=== PATIENT | male | born 1945 | race Caucasian/White ===

== ENCOUNTER 2016-05-22 20:03 | Emergency (ER) | payer MEDICARE ==
[2016-05-22 20:29] VITALS: BP 131/66
--- NOTE | 2016-05-22 20:44 | UC ---
Abdominal Pain Male HPI - HPI Summary HPI Summary: The patient comes in today for: 1. Abdominal pain: Onset: Today (4-5 hours ago). Palliative/provocative: Duralax pill was taken at about 4 hours ago. The pain went away and came back about 1-2 hours ago. At that time, the pain was 8/10 Quality: Cramping--"Like something is blocking down there." Region: Periumbilical. Severity: 2/10 at this time. Time: Comes and goes, but constant over the last few hours, though lessened. Associated symptoms: Right lower back pain: He has had this on and off for 4 months. Fevers: No temperature taken. Previous disease: He had a similar cause of pain about a month ago--"but it went away." But, he states that he had problems with constipation then. Last BM: 9 AM this morning. * - History of Current Complaint Chief Complaint: UC Stated Complaint: ABDOMINAL PAIN Time Seen by Provider: 05/22/16 20:21 Hx Obtained From: Patient, Family/[employer] - Allergies/Home Medications Allergies/Adverse Reactions: Allergies Allergy/AdvReac Type Severity Reaction Status Date / Time No Known Allergies Allergy Verified 05/06/13 10:14 PMH/Surg Hx/FS Hx/Imm Hx Previously Healthy: No - [place], ED, Subdural hematoma 2013 Endocrine History Of: Reports: Diabetes, Dyslipidemia Denies: Thyroid Disease, Hyperthyroidism, Hypothyroidism Cardiovascular History Of: Reports: Hypertension Denies: Cardiac Disorders, Pacemaker/ICD, Myocardial Infarction, Congestive Heart Failure, Atrial Fibrillation, Deep Vein Thrombosis, Bleeding Disorders Respiratory History Of: Denies: COPD, Asthma, Bronchitis, Pneumonia, Pulmonary Embolism GI/ History Of: Denies: Gastroesophageal Reflux, Ulcer, Gastrointestinal Bleed, Gall Bladder Disease, Kidney Stones, Diverticulitis, Renal Disease, Urosepsis Neurological History Of: Denies: TIA, CVA, Dementia, Seizures, Migraine Psychological History Of: Denies: Anxiety, Depression, Bipolar Disorder, Schizophrenia, Post Traumatic Stress Disorder Cancer History Of: Reports: Prostate Cancer - 2004 Denies: Lung Cancer, Colorectal Cancer, Breast Cancer, Cervical Cancer Other History Of: Negative For: HIV, Hepatitis B, Hepatitis C, Anticoagulant Therapy - Surgical History Surgical History: Yes Surgery Procedure, Year, and Place: 08/25/13-Subdural Hematoma Craniotomy, prostate - Family History Known Family History: Positive: Cardiac Disease, Diabetes - Social History Occupation: Retired Lives: With Family Alcohol Use: Rare Substance Use Type: None Smoking Status (MU): Former Smoker - Immunization History Most Recent Influenza Vaccination: 2012 Most Recent Tetanus Shot: up to date Most Recent Pneumonia Vaccination: up to date Review of Systems Constitutional: Negative Skin: Negative Eyes: Negative ENT: Negative Respiratory: Negative Cardiovascular: Negative Gastrointestinal: Abdominal Pain Genitourinary: Negative All Other Systems Reviewed And Are Negative: Yes Physical Exam Triage Information Reviewed: Yes Appearance: Well-Appearing, No Pain Distress, Well-Nourished Vital Signs: Initial Vital Signs Temp 98.1 F 05/22/16 20:24 Pulse 92 05/22/16 20:24 Resp 18 05/22/16 20:24 BP 131/66 05/22/16 20:24 Pulse Ox 97 05/22/16 20:24 Vital Signs Reviewed: Yes Eyes: Positive: Conjunctiva Clear. Negative: Discharge ENT: Positive: Hearing grossly normal. Negative: Pharyngeal erythema, Nasal congestion, Nasal drainage, TM bulging, TM dull, TM red, Tonsillar swelling, Tonsillar exudate Dental: Negative: Gross Decay/Caries @, Dental Fracture @ Neck: Positive: Supple, Nontender, No Lymphadenopathy. Negative: Nuchal Rigidity Respiratory: Positive: Chest non-tender, Lungs clear, No respiratory distress, No accessory muscle use. Negative: Crackles, Wheezing Cardiovascular: Positive: RRR, No Murmur Abdomen Description: Positive: No Organomegaly, Soft. Negative: Nontender - He has consistent tenderness of the left lower quadrant. There is no rebound or percussion tenderness, but there is increased abdominal adipose tissue interferring with the exam., Distended, Guarding, Peritoneal Signs Musculoskeletal: Positive: Strength Intact, ROM Intact Neurological: Positive: Alert, Muscle Tone Normal Psychological: Positive: Age Appropriate Behavior, Consolable Skin: Negative: rashes, breakdown Abd Pain Male Course/Dx - Differential Dx/Clinical Impression Differential Diagnosis/HQI/PQRI: Appendicitis, Diverticulitis, Ischemic Bowel Provider Diagnoses: Left lower quadrant abdominal pain. Periumbilical abdominal pain - Physician Notification/Consults Discussed Patient Care With: Dr. Andre Claire. Time Discussed With Above Provider: 21:00 Discharge - Discharge Plan Condition: Stable Disposition: AGAINST MEDICAL ADVICE Additional Instructions: Please go directly to the [facility] ER.
== END 2016-05-22 21:28 | disposition short-term general hospital (02) ==
LOC: UCEAST 20:03
DX: R10.32 Left lower quadrant pain (principal); R10.33 Periumbilical pain; Z87.891 Personal history of nicotine dependence
CPT/HCPCS: 99212; G0463

== ENCOUNTER 2016-05-22 21:38 | Observation (INO) | payer MEDICARE ==
[2016-05-22] MEDS ORDERED: NS 0.9% 1000 ML* 1,000 ML IV ONE (22:16)
[2016-05-22 23:02] LABS: Hematocrit 41 % (42-52); Mean Corpuscular HGB Conc 34 g/dl (31-36); Mean Corpuscular Hemoglobin 28 pg (27-31); Mean Corpuscular Volume 83 fL (80-94); Mean Platelet Volume 9 um3 (7.4-10.4); Red Blood Count 4.94 10^6/ul (4.0-5.4); Red Cell Distribution Width 14 % (10.5-15); White Blood Count 11.9 10^3/ul (3.5-10.8)
[2016-05-22 23:20] LABS: BUN/Creatinine Ratio 18.2 (8-20); Calcium 8.7 mg/dL (8.6-10.3); EGFR African American 109.8 (>60); EGFR Non-African American 85.4 (>60); Globulin 2.3 g/dL (2-4); Total Bilirubin 2.3 mg/dL (0.2-1.0); Total Protein 6.3 g/dL (6.4-8.9)
[2016-05-22 23:23] LABS: Potassium 3.7 mmol/L (3.5-5.0)
[2016-05-23] MEDS ORDERED: Iodixanol* (CONTRAST) 320 MG/ML 100 ML SDV IV ONE (00:09)
[2016-05-23 00:39] LABS: Urine Bacteria 1+ (Absent); Urine Bilirubin Negative (Negative); Urine Glucose Negative (Negative); Urine Nitrite Negative (Negative)
[2016-05-23] MEDS ORDERED: NS 0.9% 1000 ML* 1,000 ML IV ONE (00:44)
--- NOTE | 2016-05-23 00:46 | ED ---
Stacy Garcia Claudia, scribed for Nehemiah Guerrero MD on 05/22/16 at 2207 . Abdominal Pain/Male - HPI Summary HPI Summary: 71 year old male presents to the ED from [facility] with LLQ pain. Pt notes sudden onset of pain 1600 today. Pt notes the pain has been a constant 7/10. He notes having 1 BM with assistance of miralax but it did not alleviate his Sx. He denies any N/V/D and fever/ chills. Pt denies having any diverticulosis/ diverticulitis. - History of Current Complaint Chief Complaint: ED Stated Complaint: UCEAST XFER Time Seen by Provider: 05/22/16 21:56 Hx Obtained From: Patient Onset/Duration: Sudden Onset, Lasting Hours - sudden onset 1600 today, Still Present Timing: Constant Pain Intensity: 7 Pain Scale Used: 0-10 Numeric Location: Discrete At: LLQ Radiates: No Character: Cramping Associated Signs And Symptoms: Negative: Fever, Nausea, Vomiting, Diarrhea - Allergies/Home Medications Allergies/Adverse Reactions: Allergies Allergy/AdvReac Type Severity Reaction Status Date / Time No Known Allergies Allergy Verified 05/06/13 10:14 PMH/Surg Hx/FS Hx/Imm Hx Previously Healthy: Yes Endocrine/Hematology History: Reports: Hx Diabetes, Other Endocrine/ Hematological Disorders - History of Rosacea Denies: Hx Anticoagulant Therapy, Hx Thyroid Disease Cardiovascular History: Reports: Hx Hypertension Denies: Hx Congestive Heart Failure, Hx Deep Vein Thrombosis, Hx Myocardial Infarction, Hx Pacemaker/ICD Respiratory History: Reports: Hx Sleep Apnea - current CPAP user, compliant Denies: Hx Asthma, Hx Chronic Obstructive Pulmonary Disease (COPD), Hx Lung Cancer, Hx Pneumonia, Hx Pulmonary Embolism GI History: Denies: Hx Gall Bladder Disease, Hx Gastrointestinal Bleed, Hx Ulcer, Hx Urosepsis History: Reports: Other Problems/Disorders - Prostate Cancer Denies: Hx Kidney Stones, Hx Renal Disease Sensory History: Reports: Hx Contacts or Glasses Denies: Hx Hearing Aid Opthamlomology History: Reports: Hx Contacts or Glasses Neurological History: Denies: Hx Dementia, Hx Migraine, Hx Seizures, Hx Transient Ischemic Attacks (TIA) Psychiatric History: Denies: Hx Anxiety, Hx Depression, Hx Panic Disorder, Hx Schizophrenia, Hx Bipolar Disorder - Cancer History Cancer Type, Location and Year: Prostate Cancer dx 2004 with radical prostatectomy. no radiation or chemo Hx Chemotherapy: No Hx Radiation Therapy: No - Surgical History Surgery Procedure, Year, and Place: 08/25/13-Subdural Hematoma Craniotomy, prostate Hx Anesthesia Reactions: No Infectious Disease History: No Infectious Disease History: Denies: Hx Hepatitis, Hx Human Immunodeficiency Virus (HIV), Traveled Outside the [place] in Last 30 Days - Family History Known Family History: Positive: Cardiac Disease, Diabetes - Social History Lives: With Family Alcohol Use: Rare Substance Use Type: Reports: None Smoking Status (MU): Former Smoker Review of Systems Negative: Fever, Chills Eyes: Negative ENT: Negative Cardiovascular: Negative Respiratory: Negative Positive: Abdominal Pain - LLQ pain . Negative: Vomiting, Diarrhea, Nausea Genitourinary: Negative Musculoskeletal: Negative Skin: Negative Neurological: Negative Psychological: Normal All Other Systems Reviewed And Are Negative: Yes Physical Exam Triage Information Reviewed: Yes Vital Signs On Initial Exam: Initial Vitals Temp Pulse Resp BP Pulse Ox 98.4 F 102 16 145/71 100 05/22/16 21:43 05/22/16 21:43 05/22/16 21:43 05/22/16 21:43 05/22/16 21:43 Vital Signs Reviewed: Yes Appearance: Positive: Well-Appearing, No Pain Distress, Well-Nourished. Negative: Pain Distress Skin: Positive: Warm, Skin Color Reflects Adequate Perfusion, Dry Eyes: Positive: Normal Neck: Positive: Supple, Nontender Respiratory/Lung Sounds: Positive: Breath Sounds Present Cardiovascular: Positive: Normal, RRR, Pulses are Symmetrical in both Upper and Lower Extremities Abdomen Description: Positive: Soft, Other: - LLQ pain Male Genital Exam: Positive: normal genitalia, no hernia. Negative: epididymal tenderness, erythema, hernia mass, scrotum tenderness (R), scrotum tenderness (L ), testicular tenderness (R), testicular tenderness (L), urethral discharge Musculoskeletal: Positive: Normal, Strength/ROM Intact, Other - reproducible right paralumbar tenderness fro sacrum to trunk Neurological: Positive: Normal, Sensory/Motor Intact Psychiatric: Positive: Affect/Mood Appropriate Diagnostics - Vital Signs Vital Signs Temp Pulse Resp BP Pulse Ox 05/22/16 21:43 98.4 F 102 16 145/71 100 - Laboratory Lab Results: Lab Results 05/22/16 05/22/16 Range/Units 22:25 22:25 WBC 11.9 H (3.5-10.8) 10^3/ul RBC 4.94 (4.0-5.4) 10^6/ul Hgb 14.0 (14.0-18.0) g/dl Hct 41 L (42-52) % MCV 83 (80-94) fL MCH 28 (27-31) pg MCHC 34 (31-36) g/dl RDW 14 (10.5-15) % Plt Count 165 (150-450) 10^3/ul MPV 9 (7.4-10.4) um3 Neut % (Auto) 87.8 H (38-83) % Lymph % (Auto) 4.4 L (25-47) % [place] % (Auto) 7.3 (1-9) % Eos % (Auto) 0.2 (0-6) % Baso % (Auto) 0.3 (0-2) % Absolute Neuts (auto) 10.5 H (1.5-7.7) 10^3/ul Absolute Lymphs (auto) 0.5 L (1.0-4.8) 10^3/ul Absolute Monos (auto) 0.9 H (0-0.8) 10^3/ul Absolute Eos (auto) 0 (0-0.6) 10^3/ul Absolute Basos (auto) 0 (0-0.2) 10^3/ul Absolute Nucleated RBC 0 10^3/ul Nucleated RBC % 0 Sodium 132 L (133-145) mmol/L Potassium 3.7 (3.5-5.0) mmol/L Chloride 101 (101-111) mmol/L Carbon Dioxide 21 L (22-32) mmol/L Anion Gap 10 (2-11) mmol/L BUN 16 (6-24) mg/dL Creatinine 0.88 (0.67-1.17) mg/dL Est GFR ( Amer) 109.8 (>60) Est GFR (Non-Af Amer) 85.4 (>60) BUN/Creatinine Ratio 18.2 (8-20) Glucose 202 H (70-100) mg/dL Calcium 8.7 (8.6-10.3) mg/dL Total Bilirubin 2.30 H (0.2-1.0) mg/dL AST 462 H (13-39) U/L ALT 292 H (7-52) U/L Alkaline Phosphatase 86 (34-104) U/L Total Protein 6.3 L (6.4-8.9) g/dL Albumin 4.0 (3.2-5.2) g/dL Globulin 2.3 (2-4) g/dL Albumin/Globulin Ratio 1.7 (1-3) Lipase Pending Result Diagrams: 05/22/16 22:25 05/22/16 22:25 Lab Statement: Any lab studies that have been ordered have been reviewed, and results considered in the medical decision making process. Abdominal Pain Fem Course/Dx - Course Course Of Treatment: I discussed the case with the patient and . They agreed to admission since they do no have adequate GI FU. - Diagnoses Differential Diagnosis/HQI/PQRI: Diverticulitis, Pancreatitis, Renal Colic, Urinary Tract Infection, Other - Unclear cause for the LLQ/pelvic pain. No testicular pain or penile swelling. Low concern for torsion. No flank pain. Had an elevated T bili and mild transaminitis, but on further history taking he had several alcoholic cocktails last night during the [employer] Bowl and no longer regularly drinks alcohol. Provider Diagnoses: Acute pancreatitis - Provider Notifications Discussed Care Of Patient With: Dr. Alanis to admit for further evaluation and GI FU. Time Discussed With Above Provider: 00:44 - Critical Care Time Critical Care Time: 30-74 min Discharge - Discharge Plan Condition: Stable Disposition: ADMITTED TO [facility] Referrals: Alejandro Manning MD [Primary Care Provider] - If Needed Luis Allen MD [Medical Doctor] - If Needed The documentation as recorded by the Stacy cotter Claudia accurately reflects the service I personally performed and the decisions made by me, Nehemiah Geurrero MD.
[2016-05-23] MEDS ORDERED: Al Hydrox/Mg Hydrox/Simet LIQ* 30 ML UDC PO PRN (01:11)
[2016-05-23] MEDS ORDERED: Senna TAB PO PRN (01:11)
[2016-05-23] MEDS ORDERED: Ondansetron INJ* 2 MG/ML VIAL IV PRN (01:11)
[2016-05-23] MEDS ORDERED: Docusate CAP* 100 MG PO PRN (01:11)
[2016-05-23] MEDS ORDERED: Acetaminophen TAB* 325 MG PO PRN (01:11)
[2016-05-23] MEDS ORDERED: Dextrose 50% Syringe 50 ML* 25 GM/50 ML SYRINGE IV PUSH PRN (01:14)
[2016-05-23 01:33] LABS: Magnesium 1.8 mg/dL (1.9-2.7)
--- NOTE | 2016-05-23 03:55 | HP ---
HISTORY AND PHYSICAL: DATE OF ADMISSION: 05/23/16 TIME OF EVALUATION: 0100. PRIMARY CARE PHYSICIAN: Alejandro Manning MD CHIEF COMPLAINT: Abdominal pain. HISTORY OF PRESENT ILLNESS: This is a 71-year-old male with a past medical history of diabetes, hypertension, and constipation, who presents to the emergency room with mid abdominal pain. The patient states around 4:00 p.m. yesterday afternoon, he began having mid to lower abdominal pain after helping his carry bags into the house. He thought it was related to constipation. He took Pepto and some laxatives and his pain improved but then it returned more in the lower quadrant on the left side. He went to urgent care but at that time they were unable to do a CAT scan, so they recommended to go to the emergency room for further evaluation. The patient continues to have left lower quadrant mild pain. No nausea, vomiting. He did earlier have some pleuritic pain with shallow breathing. No chest pain. No fevers or chills. No URI illness. No changes in the diet. He did state that 2 days ago for the Super Bowl, he had 3 cocktails which normally he has not been drinking alcohol at all. In the emergency room, the patient had labs and imaging and found to have transaminitis with elevated lipase and was referred to the hospitalist service for further evaluation. Otherwise, remaining review of systems negative. In the emergency room, the patient had 1 L of normal saline and was referred to the hospitalist service. PAST MEDICAL HISTORY: 1. Diabetes. 2. Hypertension. 3. Hyperlipidemia. 4. Obstructive sleep apnea, on CPAP of 8. 5. History of prostate cancer, status post TURP. 6. History of a subdural hematoma, status post craniotomy with evacuation in September 2013. 7. Rosacea. 8. History of constipation. MEDICATIONS: 1. Felodipine 10 mg ER p.o. daily. 2. Simvastatin 10 mg p.o. daily. 3. Minocycline 50 mg p.o. b.i.d. 4. Hydrochlorothiazide 12.5 mg p.o. daily. 5. Glipizide 5 mg p.o. daily. 6. Metformin 750 mg p.o. b.i.d. ALLERGIES: No known drug allergies. FAMILY HISTORY: Reviewed and noncontributory. SOCIAL HISTORY: The patient lives at home with his , Gabino, who is his healthcare proxy. As mentioned, he admits to rare alcohol use. Tobacco, he quit 20 years ago. He is , with 2 children. Code status is full code. REVIEW OF SYSTEMS: As mentioned in the HPI. PHYSICAL EXAMINATION GENERAL: In no acute distress, resting comfortably with at the bedside. VITAL SIGNS: Temp 98.4, pulse rate 103, respiratory rate 16, oxygen saturation 96% on room air, blood pressure 130/75. HEENT: Pupils equal, reactive, and anicteric. Oropharynx: Mucous membranes moist. No erythema or exudate. Head: normocephalic. NECK: Supple. No lymphadenopathy. RESPIRATORY: Diminished breath sounds. No wheezing, rhonchi, or rales. CARDIAC: Tachycardia. No murmurs, rubs, or gallops. ABDOMEN: Normal bowel sounds. Soft, nondistended. He has some mild left lower quadrant tenderness. No right upper quadrant tenderness. No rebound or guarding. EXTREMITIES: No clubbing, cyanosis, or edema. NEUROLOGIC: Alert and oriented x3. No focal neurologic deficits. DIAGNOSTIC STUDIES/LAB DATA: White count 11.9, hemoglobin 14, hematocrit 41, platelets 165. Sodium 132, potassium 3.7, chloride 101, bicarb 21, BUN 16, creatinine 0.88, glucose 202. Total bili 2.3, direct bili 1, AST 462, ALT 292. Lipase 2611. Urinalysis +1 blood, squamous epithelial cells. Radiographic data: Abdominal and pelvis CT showing haziness, central mesenteric fat, and small mesenteric lymph nodes, possibly mesenteritis. No bowel obstruction, colitis, diverticulitis, free fluid, or free air. Normal appendix. Unremarkable pancreas and gallbladder. Punctate stone of the left kidney. Minimal hepatosplenomegaly. Small possible splenic cyst or hemangioma , moderate hiatal hernia, cystectomy, bilateral vasectomy clips. ASSESSMENT AND PLAN: This is a 71-year-old male with past medical history of diabetes and constipation, who presents to the emergency room with abdominal pain found to have elevated lipase and liver function tests. Abdominal pain. Assessment: The patient's abdominal pain is not typical for pancreatitis as his pain is in the left lower quadrant. His CAT scan does show possible mesenteritis, which may be contributing to his pain but he has notable elevated liver function tests, bilirubin, and lipase. This could be related to his alcohol use, when he had 3 cocktails on Super Bowl 2 days ago. Also, concerning is for gallstone pancreatitis. He also is on minocycline which can cause liver impairment contributing to his elevated LFTs. Plan: We are going to get an ultrasound of his gallbladder and liver. We will repeat his labs in the morning. If his labs continue to remain elevated or go up, recommend GI evaluation and further workup for his elevated liver function tests. The patient may need further imaging. We will keep him on a clear liquid diet with IV fluids. CHRONIC MEDICAL PROBLEMS: 1. Diabetes. We will hold his oral agents, start him on lispro sliding scale. 2. Hypertension. We will put him on amlodipine and place him on felodipine, hold his hydrochlorothiazide. 3. Hyperlipidemia. We will hold his simvastatin as it may be contributing to his elevated LFTs as well. 4. Rosacea. Hold the minocycline as noted as it may be contributing to his elevated LFTs. 5. FEN. Clear liquid diet with IV fluids. 6. DVT prophylaxis. The patient's score is high risk. Place him on SCDs in the setting of his history of subdural hematoma. We will avoid chemical anticoagulation. 7. Code status. Full code. PATIENT TIME: Greater than 60 minutes was spent doing history and physical, more than half time was spent in direct patient contact. CC: Alejandro Manning MD * [id number]/[facility] #: [id number] DAVID
[2016-05-23 05:30] LABS: Hematocrit 38 % (42-52); Hemoglobin 12.9 g/dl (14.0-18.0); Mean Corpuscular HGB Conc 34 g/dl (31-36); Mean Corpuscular Hemoglobin 29 pg (27-31); Mean Corpuscular Volume 83 fL (80-94); Mean Platelet Volume 9 um3 (7.4-10.4); Red Blood Count 4.53 10^6/ul (4.0-5.4); Red Cell Distribution Width 14 % (10.5-15)
[2016-05-23 05:45] LABS: Albumin 3.7 g/dL (3.2-5.2); BUN/Creatinine Ratio 16.1 (8-20); Calcium 8.4 mg/dL (8.6-10.3); EGFR African American 111.2 (>60); EGFR Non-African American 86.5 (>60); Globulin 2.1 g/dL (2-4); Potassium 3.7 mmol/L (3.5-5.0); Total Protein 5.8 g/dL (6.4-8.9)
--- NOTE | 2016-05-23 07:56 | RAD ---
CLINICAL HISTORY: Left lower quadrant pain. Relevant surgical history includes prostatectomy. COMPARISON: None TECHNIQUE: Contrast enhanced CT examination of the abdomen and pelvis from the lung bases through the initial tuberosities. The patient received 128 mL Visipaque 320 intravenously prior to imaging.The patient received oral contrast as well prior to imaging. FINDINGS: VISUALIZED LUNG BASES: The visualized lung bases are grossly clear. There is no pleural effusion. ABDOMEN AND PELVIS: There is a moderate size hiatal hernia. The liver is homogenously hypodense. In the right lobe of the liver (image 2103) there is a 1.2 cm hyperattenuating ill-defined focus. The spleen is enlarged measuring 16 cm in greatest axial dimension. The pancreas and adrenal glands are grossly normal in appearance. The gallbladder is normal. The kidneys are normal in appearance without focal mass, calcification or signs of hydronephrosis. The oral contrast has progressed as far as the transverse colon. The small and large bowel are not distended. The patient's normal appendix is identified in the right lower quadrant (sagittal image 51). There is mild wall thickening of the terminal ileum (for example coronal image 50 of 1:15) measuring up to 6 mm in thickness. There is mild wall thickening of the transverse colon with the wall measuring up to 7 mm in thickness (axial image 36). There is mild infiltration of the peritoneal fat along the mesenteric root (for example axial image 38). In this same vicinity there are is mild mesenteric lymphadenopathy with the largest cluster of lymph nodes measuring 11 mm in short access dimension (image 38). Surgical clips at the pelvic floor are consistent with the patient's history of prostatectomy. Vasectomy clips are noted. The mildly calcified and ectatic abdominal aorta and iliac arteries are otherwise normal in course and diameter. Degenerative changes include multilevel loss of intervertebral disc height involving the lower thoracic and lumbar spine.There are no sinister bone lesions. IMPRESSION: 1. The constellation of findings including mild terminal ileum and transverse colon wall thickening, mild mesenteric lymphadenopathy and infiltration of the mesenteric root fat, could be seen in the setting of inflammatory or infectious bowel pathology. 2. Homogenously hypodense liver is consistent with hepatic steatosis. 3. Splenomegaly of uncertain etiology. 4. Possible flash filling hemangioma in the right lobe of the liver. A more sinister etiology is not completely excluded. On a nonemergent basis further characterization of the liver can be made with ultrasound. 5. Additional chronic, degenerative and iatrogenic findings as described in the body of the report.
[2016-05-23] MEDS: Insulin LISPRO* 1 UNITS UNIT SUBCUT SCH ×3 (08:47→17:02)
[2016-05-23] MEDS: amLODIPine TAB* 5 MG PO SCH (08:48)
--- NOTE | 2016-05-23 08:52 | RAD ---
Indication: Liver and gallbladder disease. Real-time sonography of the right upper quadrant was performed. The liver is enlarged measuring 20.1 cm in length. It is diffusely increased in echogenicity consistent with hepatic steatosis. No focal lesions or intrahepatic ductal dilatation is noted. The gallbladder demonstrates no evidence of gallstones, pericholecystic fluid or wall thickening. The common duct measures 4 mm. Right kidney measures 11.0 x 4.5 x 5.8 cm with no hydronephrosis. The pancreas is grossly unremarkable although limited in evaluation due to body habitus. Aorta and inferior vena cava are also limited in evaluation. IMPRESSION: Hepatomegaly with hepatic steatosis. No evidence of cholelithiasis or biliary duct dilatation is noted.
--- NOTE | 2016-05-23 11:48 | PN ---
Subjective Date of Service: 05/23/16 Interval History: Patient seen this morning. Says he is feeling much better. He has had a few loose BMs here which he feels has resolved that pain. Denies any further pain. Says his legs are usually this layne due to sun exposure while he is on minocycline. Family History: Unchanged from Admission Social History: Unchanged from Admission Past Medical History: Unchanged from Admission Objective Active Medications: Acetaminophen (Tylenol Tab*) 650 mg PO Q4H PRN PRN Reason: FEVER/PAIN Al Hydrox/Mg Hydrox/Simethicone (Maalox Plus*) 30 ml PO Q6H PRN PRN Reason: INDIGESTION Amlodipine Besylate (Norvasc Tab*) 10 mg PO DAILY [facility] Last Admin: 05/23/16 08:48 Dose: 10 mg Dextrose (D50w Syringe 50 Ml*) 12.5 gm IV PUSH .FOR FS < 60 - SS PRN PRN Reason: FS < 60 Docusate Sodium (Colace Cap*) 100 mg PO BID PRN PRN Reason: CONSTIPATION Insulin Human Lispro (Humalog*) 0 units SUBCUT AC CAN PRN Reason: Protocol Last Admin: 05/23/16 08:47 Dose: 2 unit Ondansetron HCl (Zofran Inj*) 4 mg IV Q4H PRN PRN Reason: NAUSEA/VOMITING Senna (Senokot Tab*) 1 tab PO BID PRN PRN Reason: CONSTIPATION Vital Signs 05/23/16 05/23/16 05/23/16 01:30 02:00 03:26 Temperature 98.1 F Pulse Rate 99 96 87 Respiratory 16 Rate Blood Pressure 121/70 131/71 148/86 (mmHg) O2 Sat by Pulse 95 96 97 Oximetry 05/23/16 05/23/16 05/23/16 03:49 07:50 08:00 Temperature 98.1 F 99.6 F Pulse Rate 87 86 Respiratory 16 18 14 Rate Blood Pressure 148/86 130/76 (mmHg) O2 Sat by Pulse 97 95 Oximetry Oxygen Devices in Use Now: None Appearance: Elderly, M, laying in bed in NAD Eyes: No Scleral Icterus Ears/Nose/Mouth/Throat: Mucous Membranes Moist Neck: NL Appearance and Movements; NL JVP Respiratory: Symmetrical Chest Expansion and Respiratory Effort, Clear to Auscultation Cardiovascular: NL Sounds; No Murmurs; No JVD, RRR Abdominal: NL Sounds; No Tenderness; No Distention Lymphatic: No Cervical Adenopathy Extremities: No Edema Skin: - - Layne skin, particularly in LEs Neurological: Alert and Oriented x 3 Result Diagrams: 05/23/16 05:14 05/23/16 05:14 Additional Lab and Data: Assess/Plan/Problems-Billing Assessment: Abdominal pain, abnormal LFTs, biochemical pancreatitis in a 71 yo M with hx of HTN, HLD, DM, DUY, rosacea - Patient Problems (1) Abdominal pain Current Visit: Yes Comment: CT shows some mild areas of inflammation. Pain seems to have resolved, tolerating clears with no issues. Site of pain ( periumbilical, LLQ) not c/w lab abnormalities. Lipase trending down (2) LFT elevation Current Visit: Yes Comment: CT and RUQ US not showing much in terms of RUQ pathology. Does have hepatomegaly. Tbili climbing, AST mostly unchanged, ALT higher. Have ordered fractionated bilirubin. Also iron studies (?hemochromatosis ). Will ask GI to evaluate the patient. Will trend labs. Holding Minocycline and statin. (3) Diabetes Current Visit: Yes Comment: Continue HISS (4) HTN (hypertension) Current Visit: Yes Comment: Continue amlodipine. Holding HCTZ (5) HLD (hyperlipidemia) Current Visit: Yes Comment: Holding statin (6) Rosacea Current Visit: Yes Comment: Holding Minocycline (7) DVT prophylaxis Current Visit: Yes Comment: SCDs
[2016-05-23 13:19] LABS: Direct Bilirubin 1.9 mg/dL (0.03-0.18); Indirect Bilirubin 2.1 mg/dL (0.3-1.0)
--- NOTE | 2016-05-23 18:56 | CONS ---
GASTROENTEROLOGY CONSULT: DATE: 05/23/16 CONSULTING PHYSICIANS: Alejandro Neil. REASON FOR CONSULT: Abdominal pain and abnormal LFTs and lipase elevation to 2611. HISTORY OF PRESENT ILLNESS: This 71-year-old retired [employer] employee said that yesterday mid afternoon he started to feel a lower abdominal pain. It was severe, but he only refers to that judgment in retrospect. He took some Pepto- Bismol and Dulcolax. He went to [facility] around 7 p.m. and then got to the emergency room around 9. He was afebrile with stable vitals. His labs were impressive with ALT 292, bilirubin 2.3, lipase 2611, and he was admitted. After admission, he started feeling better and today the labs have gone in different directions with bilirubin up to 4.0, alkaline phosphatase essentially unchanged at 82, and lipase much improved at 497. He actually feels quite well with no residual complaint. He states he never had anything like this before. He is not particularly prone to acid indigestion. He has never had an upper endoscopy. PAST MEDICAL HISTORY: 1. Obesity. 2. Diabetes - on metformin 10 years and other meds more recently. 3. Obstructive sleep apnea. 4. History of prostate cancer - status post radical prostatectomy, 2005. 5. 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 Iyer. 6. History of colon polyps - numerous, removed at 4 prior colons 7. Dyslipidemia - on simvastatin. SOCIAL HISTORY: He is . Retired from the [employer]. REVIEW OF SYSTEMS: No history of renal stones, hematuria, ND, syncope, exertional chest pain, or rise in his PSA. He does tend to constipation. There is no blood in the stool. PHYSICAL EXAM: He is a substantially overweight middle-aged man, in no distress. HEENT exam is unremarkable. Sclerae are dusky. He has no adenopathy. His lungs are clear and heart sounds are normal. The abdomen is obese with normal bowel sounds, firm. Rectal deferred. Extremities showed no edema. DIAGNOSTIC STUDIES: CT scan reviewed - a coronal image 53 of 115 shows a common duct as being slender, and at least two-thirds of its contour is in the plane of view. Axial image 31 of 103 showed potentially very diminutive common duct stone. IMPRESSION: This 71-year-old man presents with pain that is intense enough to suggest biliary colic, although he atypically points to the lower abdomen or left lower quadrant. Clearly, however, the labs indicate that this is a biliary process and they are being tracked as is appropriate. Despite the consistent clinical story, sludge or stones have not been visualized so far in imaging. An MRCP will add to the assessment though if negative may just be that the stone has passes. The small size of the common duct on study so far would indicate a more difficult that average ERCP should that be indicated. He is on a statin now which should lower bile cholesterol index. Empiric ursodiol would be a consideration. [id number]/CPS #: [id number] MTDD
--- NOTE | 2016-05-23 21:16 | RAD ---
HISTORY: Right upper quadrant gallstones, abdominal pain COMPARISONS: Ultrasound dated May 23, 2015, CT dated May 23, 2015 TECHNIQUE: The following sequences were obtained of the abdomen as part of the MR cholangiogram: Axial T2-weighted images with fat saturation, coronal 3-D single shot fast spin-echo T2-weighted images, coronal 3-D heavily T2-weighted MRCP images. 3-D maximum intensity projection extractions are also submitted for review. FINDINGS: GALLBLADDER: There are small filling defects within the gallbladder consistent with cholelithiasis. There is no pericholecystic change. Cystic duct appears patent. BILIARY TREE. There is no intrahepatic or extrahepatic biliary dilatation. There is no appreciable filling defect of the common duct to suggest choledocholithiasis. There is multifocal narrowing of the left hepatic duct. PANCREATIC DUCT: The pancreatic duct is normal in caliber. VISCERA: The liver is unremarkable. There is a focus of elevated T2 signal within the spleen suggestive of a hemangioma. Small renal cysts are noted. The small bowel is unremarkable. Large bowel is unremarkable. There are trace bilateral pleural effusions. The vasculature is unremarkable. IMPRESSION: 1. CHOLELITHIASIS WITHOUT PERICHOLECYSTIC INFLAMMATORY CHANGE. 2. THERE IS NO APPRECIABLE CHOLEDOCHOLITHIASIS. THERE IS MULTIFOCAL STENOSIS OF THE LEFT HEPATIC DUCT. THERE IS NO APPRECIABLE BILIARY DILATATION.
[2016-05-24 06:15] LABS: Hematocrit 38 % (42-52); Mean Corpuscular HGB Conc 34 g/dl (31-36); Mean Corpuscular Hemoglobin 29 pg (27-31); Mean Corpuscular Volume 85 fL (80-94); Mean Platelet Volume 10 um3 (7.4-10.4); Red Cell Distribution Width 14 % (10.5-15); White Blood Count 6.4 10^3/ul (3.5-10.8)
[2016-05-24 06:19] LABS: Add Diff/Slide Review? Manual Diff Added; Comments Flag Yes
[2016-05-24 06:31] LABS: Albumin 3.6 g/dL (3.2-5.2); BUN/Creatinine Ratio 11.5 (8-20); Calcium 8.4 mg/dL (8.6-10.3); EGFR African American 111.2 (>60); EGFR Non-African American 86.5 (>60); Globulin 2.3 g/dL (2-4); Total Bilirubin 4.8 mg/dL (0.2-1.0); Total Protein 5.9 g/dL (6.4-8.9)
[2016-05-24 06:40] LABS: Potassium 3.9 mmol/L (3.5-5.0)
[2016-05-24 07:02] LABS: Eosinophils % 2 % (0-6); Neutrophil % 74 % (38-83); RBC Morphology Normal (Normal)
[2016-05-24] MEDS: Insulin LISPRO* 1 UNITS UNIT SUBCUT SCH ×2 (09:17→12:47)
[2016-05-24] MEDS: amLODIPine TAB* 5 MG PO SCH (09:39)
--- NOTE | 2016-05-24 09:54 | DCNOTE ---
Patient seen this morning. Feels well, tolerated diet last night with no issues. No pain. MRCP results reviewed. On exam, RRR, s1 and s2 present, no m/g/r, abd soft, NTND, BS+, no LE edema Will discharge home today. Repeat blood work on 05/26 and 05/30. F/U with Dr. Allen and PCP
[2016-05-24 11:42] VITALS: BP 136/75
--- NOTE | 2016-05-24 23:32 | DS ---
DISCHARGE SUMMARY: DATE OF ADMISSION: 05/23/16 DATE OF DISCHARGE: 05/24/16 PRIMARY CARE PHYSICIAN: Dr. Manning. PRINCIPAL DISCHARGE DIAGNOSES: 1. Gallstone pancreatitis. 2. Abdominal pain. SECONDARY DIAGNOSES: 1. Diabetes. 2. Hypertension. 3. Hyperlipidemia. 4. Obstructive sleep apnea. 5. Rosacea. DISCHARGE MEDICATION REGIMEN: 1. Felodipine 10 mg by mouth daily. 2. Minocycline 50 mg by mouth 2 times daily. 3. Hydrochlorothiazide 12.5 mg by mouth daily. 4. Glipizide 5 mg by mouth daily. 5. Metformin 750 mg by mouth 2 times daily. STUDIES DONE DURING HOSPITALIZATION: CT of the abdomen and pelvis with contrast. Impression: Constellation of findings include mild terminal ileum and transverse colon wall thickening. Mild mesenteric lymphadenopathy and infiltration of the mesenteric root fat could be seen in the setting of inflammatory infectious bowel pathology. Homogeneously hyperdense liver is consistent with hepatic steatosis, splenomegaly of uncertain origin, possible flash filling hemangioma in the right lobe of the liver, a more sinister etiology is not completely excluded. On a nonemergent basis, further characterization of the liver could be made with ultrasound, additional chronic degenerative and iatrogenic findings are described in the body of the report. Ultrasound of the gallbladder, hepatomegaly, hepatic steatosis. No evidence of cholelithiasis or biliary duct dilatation is noted. MRCP: Impression: Cholelithiasis without pericholecystic inflammatory change. There is no appreciable choledocholithiasis. There is multifocal stenosis to the left hepatic duct. There is no appreciable biliary dilatation. HISTORY OF PRESENT ILLNESS AND HOSPITAL SUMMARY: Please see the full history and physical by Dr. Rosemary Alanis for full details. Briefly, Mr. Blackman is a 71 -year- old male with a past medical history as above who presented to the hospital with periumbilical and left lower quadrant pain. The patient initially went to Urgent Care and was sent to the ED for a CAT scan. The patient states that his pain resolved after 2 bowel movements. On his labs, he was noted to have a transaminitis and elevated lipase and elevated bilirubin. Imaging as above showed no specific cause for his labs. However, it was felt that this could have been a gallstone pancreatitis. GI was consulted and recommended an MRCP which showed some stones in the gallbladder; however, nothing in the duct and a normal pancreatic duct. The patient was restarted on low fat diet with no pain. His AST, ALT, and lipase were all trending down. His alk phos was mildly elevated; however, his total bilirubin was still slightly elevated. He is instructed to hold his simvastatin for now and to have a repeat complete metabolic profile checked on 11/23/16 and 11/27/16 and will follow up with Dr. Allen in the office as well as Dr. Manning, his PCP. TIME SPENT: Total time spent on this discharge 40 minutes. This is a summary of the hospitalization, please see the full medical records for further details. CC: Dr. Manning; Dr. Luis Allen, Gastroenterology* [id number]/[facility] #: [id number] MTDD
== END 2016-05-24 13:40 | disposition home or self-care (01) ==
LOC: ED 21:38 → MED 05-23 01:11 → INTOOBSV 05-23 01:11
PROVIDERS: ADMIT Pediatrics; ATTEND Hospitalist
DX: K85.10 Biliary acute pancreatitis without necrosis or infection (principal); E11.9 Type 2 diabetes mellitus without complications; Z79.84 Long term (current) use of oral hypoglycemic drugs; I10 Essential (primary) hypertension; E78.5 Hyperlipidemia, unspecified; E66.9 Obesity, unspecified; G47.33 Obstructive sleep apnea (adult) (pediatric); L71.9 Rosacea, unspecified; Z79.899 Other long term (current) drug therapy; R59.1 Generalized enlarged lymph nodes; R79.89 Other specified abnormal findings of blood chemistry; R16.2 Hepatomegaly with splenomegaly, not elsewhere classified; R74.0 Nonspecific elevation of levels of transaminase and lactic acid dehydrogenase [LDH]; Z85.46 Personal history of malignant neoplasm of prostate; Z87.891 Personal history of nicotine dependence
CPT/HCPCS: 36415; 74177; 74181; 76376; 76705; 80053; 81003; 81015; 82247; 82248; 83540; 83550; 83690; 83735; 85025; 85610; 85730; 87086; 99291; A9270-GY; G0378; Q9967

== ENCOUNTER 2016-06-21 09:25 | Day surgery (SDC) | payer MEDICARE ==
[~2016-06-21 09:25] MED LIST: Buffered Lidocaine 1% SYR 3ML* 3 ML/SYR SYRINGE INTRADERM ONE; Famotidine IV* 10 MG/ML 2 ML (20 mg) IV ONE; Famotidine IV* 10 MG/ML 2 ML (20 mg) ONE; ceFAZolin 2 GM PREMIX (*) 2 GM/50 ML BAG IVPB ONE
[2016-06-21] MEDS ORDERED: fentaNYL* 50 MCG/ML 2 ML VIAL (100 MCG VIAL) ONE (09:45)
[2016-06-21] MEDS ORDERED: Midazolam* 1 MG/ML 5 ML VIAL (5 MG) ONE (09:45)
[2016-06-21] MEDS ORDERED: Ketorolac INJ* 30 MG/ML 1 ML VIAL ONE (09:46)
[2016-06-21] MEDS ORDERED: Succinylcholine* 20 MG/ML 10 ML VIAL ONE (09:46)
[2016-06-21] MEDS ORDERED: Lidocaine 2% PF * 5 ML VIAL ONE (09:46)
[2016-06-21] MEDS ORDERED: Ondansetron INJ* 2 MG/ML VIAL ONE (09:46)
[2016-06-21] MEDS ORDERED: Dexamethasone IV* 4 MG/ML 1 ML (4 MG) ONE (09:46)
[2016-06-21] MEDS ORDERED: Propofol* 10 MG/ML 20 ML BTL IV PUSH ONE (09:46)
[2016-06-21] MEDS ORDERED: Rocuronium* 10 MG/ML VIAL ONE (10:23)
[2016-06-21] MEDS ORDERED: Bupivacaine 0.25% EPI 200,000* 30 ML SDV ONE (10:45)
[2016-06-21] MEDS ORDERED: Neostigmine Methylsulfate* 2 MG/2 ML SYRINGE ONE (11:36)
[2016-06-21] MEDS ORDERED: Glycopyrrolate IV* 0.2 MG/ML 1 ML VIAL ONE (11:36)
--- NOTE | 2016-06-21 11:41 | SURGPN ---
Brief Operative Note - Surgery Procedures: Procedures Pre-OP Diagnoses: gallstone pancreatitis Post-op Diagnosis: same Procedure: Laparoscopic cholecystectomy Surgeon: Valarie Asst: Samantha MARTINEZ Anethesia: SAEED Rodriguez EBL: minimal IVF: minimal Specimen: gallbladder Drains: none
[2016-06-21] MEDS ORDERED: HYDROmorphone INJ* 1 MG/ML CARPUJECT SYRINGE IV PRN (11:58)
[2016-06-21] MEDS ORDERED: Acetaminophen IV 1GM/100ML * 100 ML IVPB ONE (11:58)
[2016-06-21] MEDS ORDERED: oxyCODONE TAB* 5 MG TAB PO PRN (11:58)
[2016-06-21] MEDS ORDERED: DiMENhydriNATE IV* 50 MG/ML VIAL IV PUSH PRN (11:58)
[2016-06-21] MEDS ORDERED: Acetaminophen IV 1GM/100ML * 100 ML ONE (12:25)
[2016-06-21] MEDS ORDERED: oxyCODONE TAB* 5 MG TAB ONE (12:29)
[2016-06-21 13:08] VITALS: BP 128/73
--- NOTE | 2016-06-22 02:12 | OP ---
DATE OF OPERATION: 06/21/16 [facility] DATE OF : 45 SURGEON: Ismael Sheppard MD. ANIMAL BOUNTY HUNTER: JUAN Sepulveda. ANESTHESIOLOGIST: Dr. Rodriguez. ANESTHESIA: General anesthesia. PRE-OP DIAGNOSIS: Gallstone pancreatitis. POST-OP DIAGNOSIS: Gallstone pancreatitis. OPERATIVE PROCEDURE: Laparoscopic cholecystectomy. ESTIMATED BLOOD LOSS: Minimal blood loss. FLUIDS: Minimal crystalloid fluid given. SPECIMEN: Gallbladder. DRAINS: None. COUNTS: Lap pad count, instrument count correct at the end of the procedure. DESCRIPTION OF PROCEDURE: The patient was identified in the preoperative area, marked, brought to the operating room, placed on the operating table in supine position. Preoperative antibiotics were given. Sequential devices were placed on bilateral lower extremities. General anesthesia was induced. The patient's abdomen was prepped and draped in a standard surgical fashion. A time-out was performed. The folds of the umbilicus were elevated anteriorly and a Veress needle was inserted into the abdominal cavity, which was then allowed to insufflate to a pressure of 15 mmHg. The patient tolerated the insufflation well. A periumbilical incision was made and a 5 mm trocar was inserted. A laparoscope was inserted through this. Review of the trocar and the Veress needle showed no evidence of injury. The Veress needle was then removed and then additional trocars were placed in the following position, a 12 mm in the subxiphoid area and two 5 mm along the right costal margin. The table was repositioned. Gallbladder was identified, it showed no significant inflammation. The fundus was grasped and elevated above the liver. The infundibulum was then grasped and retracted towards the right lower quadrant, this exposed the Calot triangle. Dissection was carried out taking the peritoneum off the medial aspect, extending this up the medial wall of the gallbladder and then the lateral aspect was similarly taken. A window was made along the cystic artery and at the cystic duct. The cystic duct was then triply clipped and ligated. The cystic artery was doubly clipped and ligated and the gallbladder was removed from the liver bed, placed in an endoscopic retrieval bag and brought out through the subxiphoid port site. Review of the cystic duct stump showed no bleeding, no bile leak. Table was repositioned back to neutral, abdomen was allowed to collapse. Trocars removed under direct vision and all 4 skin incisions were reapproximated with 4-0 Monocryl subcuticular sutures. Steri-Strips and sterile dressings were applied. The patient tolerated the procedure well, was to be woken up in the OR for planned transfer to the recovery room. CC: Alejandro Manning MD; [facility] * [id number]/[facility] #: [id number] MTDD
== END 2016-06-21 13:29 | disposition home or self-care (01) ==
LOC: OR 09:25
PROVIDERS: ATTEND Surgery
DX: K85.10 Biliary acute pancreatitis without necrosis or infection (principal); K80.10 Calculus of gallbladder with chronic cholecystitis without obstruction; Z87.891 Personal history of nicotine dependence; E11.8 Type 2 diabetes mellitus with unspecified complications; I25.10 Atherosclerotic heart disease of native coronary artery without angina pectoris; G47.33 Obstructive sleep apnea (adult) (pediatric)
CPT/HCPCS: 88304; 93005; A9270-GY; J0330; J0690; J1100; J1885; J2250; J2405; J2704; J3010

== ENCOUNTER 2022-03-21 10:35 | Inpatient (IN) ==
[2022-03-21 11:04] LABS: ABS Lymphocytes 1.2 10^3/ul (1.0-4.8); ABS Monocytes 0.6 10^3/ul (0-0.8); ABS Neutrophils 7.7 10^3/ul (1.5-7.7); Eosinophil % 0.2 %; Hematocrit 41 % (42-52); Hemoglobin 13.7 g/dL (14.0-18.0); Lymphocyte % 12.8 %; Mean Corpuscular HGB Conc 34 g/dL (31-36); Mean Corpuscular Hemoglobin 28 pg (27-31); Mean Corpuscular Volume 84 fL (80-94); Mean Platelet Volume 8.4 fL (7.4-10.4); Platelet Count 193 10^3/uL (150-450); Red Blood Count 4.88 10^6 /uL (4.18-5.48); Red Cell Distribution Width 14 % (10-15); White Blood Count 9.6 10^3/uL (3.5-10.8)
[2022-03-21 11:10] LABS: INR 0.95 (0.89-1.11)
[2022-03-21] MEDS ORDERED: NS 0.9% 1000 ml BAG 1,000 ML IV ONE (11:39)
[2022-03-21 11:54] LABS: Albumin 4.4 g/dL (3.2-5.2); Albumin/Globulin Ratio 2.2 (1-3); Calcium 8.8 mg/dL (8.6-10.3); Potassium 4.1 mmol/L (3.5-5.0); Total Bilirubin 0.7 mg/dL (0.2-1.0); Total Protein 6.4 g/dL (6.4-8.9); eGFR CKD-EPI 91.5 (>60)
[2022-03-21] MEDS ORDERED: Nitro 2% OINT (Nitroglycerin) 1 INCH/PAK TOPICAL ONE (11:54)
[2022-03-21 12:30] LABS: High Sensitivity Troponin 1 Hr 9669 pg/mL (<20)
[2022-03-21] MEDS ORDERED: Heparin DRIP 25,000 UNITS BAG 25,000 UNITS/500 ML BAG IV SCH (12:30)
[2022-03-21 12:55] LABS: ABS Lymphocytes 1.6 10^3/ul (1.0-4.8); ABS Monocytes 0.8 10^3/ul (0-0.8); ABS Neutrophils 7.4 10^3/ul (1.5-7.7); Eosinophil % 0.4 %; Hematocrit 37 % (42-52); Hemoglobin 12.4 g/dL (14.0-18.0); Lymphocyte % 15.9 %; Mean Corpuscular HGB Conc 34 g/dL (31-36); Mean Corpuscular Hemoglobin 29 pg (27-31); Mean Corpuscular Volume 84 fL (80-94); Mean Platelet Volume 8.2 fL (7.4-10.4); Platelet Count 194 10^3/uL (150-450); Red Blood Count 4.36 10^6 /uL (4.18-5.48); Red Cell Distribution Width 14 % (10-15); White Blood Count 9.9 10^3/uL (3.5-10.8)
[2022-03-21] MEDS ORDERED: nitroGLYCERIN DRIP 25,000 MCG/250 ML BTL IV SCH (13:00)
[2022-03-21] MEDS ORDERED: Heparin 5000 UNITS/ML 1 mL VIAL IV SCH (13:00)
[2022-03-21] MEDS ORDERED: Iohexol 350 (CONTRAST) 100 ML PAK IV ONE (13:23)
[2022-03-21] MEDS ORDERED: niCARdipine 0.1MG/ML IVPREMIX 20 MG/200 ML BAG IV ONE (13:23)
[2022-03-21] MEDS ORDERED: Lidocaine 1% MPF 5 ML VIAL ONE (13:23)
[2022-03-21] MEDS ORDERED: fentaNYL 100 mcg/2 ml 50 MCG/ML VIAL ONE (13:24)
[2022-03-21] MEDS ORDERED: Midazolam 5 mg/5 ml VIAL 1 mg/ml 5 ml VIAL (5 mg) ONE (13:24)
[2022-03-21] MEDS ORDERED: VERAPAMIL 2.5 MG/ML 2 ML VIAL ** 5 mg/2 ml ONE (13:24)
[2022-03-21] MEDS ORDERED: Heparin 2 UNITS/ML 1000 mls 2,000 ML IV ONE (13:24)
[2022-03-21] MEDS ORDERED: Heparin 1,000 UNIT/ML 10 ml (10,000 UNITS) CATHLAB/DIALYSIS ONE ×2 (13:24→14:12)
[2022-03-21] MEDS ORDERED: nitroGLYCERIN DRIP 25,000 MCG/250 ML BTL ONE (13:24)
[2022-03-21 14:05] LABS: eGFR CKD-EPI 92.9 (>60)
[2022-03-21] MEDS ORDERED: Atropine 0.1 MG/ML 10 ml SYR (1 mg) ONE (14:14)
[2022-03-21] MEDS ORDERED: Phenylephrine 40 mcg/mL 10mL (400mcg) SYRINGE ONE (14:29)
[2022-03-21] MEDS ORDERED: Ondansetron 4 mg VIAL 2 MG/ML 2 ml VIAL IV PRN (15:11)
[2022-03-21] MEDS ORDERED: Atropine 1 MG/ML INJ 1 ML VIAL IV PUSH PRN (16:26)
[2022-03-21] MEDS ORDERED: Atropine 0.1 MG/ML 10 ml SYR (1 mg) IV PUSH PRN (16:29)
[2022-03-21] MEDS: NF: Metformin ER 750 mg TAB (NF) PO SCH (22:47)
[2022-03-22 04:33] LABS: ABS Basophils 0.1 10^3/ul (0-0.2); ABS Eosinophils 0.1 10^3/ul (0-0.6); ABS Lymphocytes 2.1 10^3/ul (1.0-4.8); ABS Monocytes 0.8 10^3/ul (0-0.8); Eosinophil % 0.9 %; Hematocrit 31 % (42-52); Hemoglobin 10.5 g/dL (14.0-18.0); Lymphocyte % 26.3 %; Mean Corpuscular HGB Conc 34 g/dL (31-36); Mean Corpuscular Hemoglobin 29 pg (27-31); Mean Corpuscular Volume 86 fL (80-94); Mean Platelet Volume 8.8 fL (7.4-10.4); Nucleated Red Blood Cells % 0.1; Platelet Count 146 10^3/uL (150-450); Red Blood Count 3.66 10^6 /uL (4.18-5.48); Red Cell Distribution Width 14 % (10-15); White Blood Count 8.1 10^3/uL (3.5-10.8)
[2022-03-22 05:03] LABS: Albumin 3.1 g/dL (3.2-5.2); Calcium 7.1 mg/dL (8.6-10.3); Magnesium 1.7 mg/dL (1.9-2.7); Potassium 3.4 mmol/L (3.5-5.0); Total Bilirubin 0.5 mg/dL (0.2-1.0)
[2022-03-22] MEDS ORDERED: Potassium Chlor 20 meq TAB.ER PO ONE (05:04)
[2022-03-22] MEDS ORDERED: Magnesium Sulfate IV 3 GM in NS 0.9% 100 ml BAG 100 ML IVPB ONE (05:04)
[2022-03-22 05:09] LABS: Albumin/Globulin Ratio 2.2 (1-3); Globulin 1.4 g/dL (2-4); HDL Cholesterol 24.8 mg/dL; Total Protein 4.5 g/dL (6.4-8.9); eGFR CKD-EPI 95.3 (>60)
[2022-03-22] MEDS ORDERED: Perflutren Lipid Microsphere 3 ML VIAL ONE (08:11)
[2022-03-22] MEDS ORDERED: Dextrose 50% Syringe 50 ml 25 GM/50 ML SYRINGE IV PUSH PRN (10:33)
[2022-03-22] MEDS: NF: Metformin ER 750 mg TAB (NF) PO SCH (10:46)
[2022-03-22] MEDS ORDERED: NF: ICOSAPENT ETHYL 1 GM CAPSULE (NF) PO SCH (11:00)
[2022-03-22 13:07] LABS: TSH Ultra Thyroid Stim Horm 4.22 mcIU/mL (0.34-5.60)
[2022-03-22] MEDS: CMCS:OMEGA-3 FATTY ACID 1000 mg(NF) PO SCH ×2 (14:42→19:55)
[2022-03-23 02:10] LABS: Hematocrit 37 % (42-52); Hemoglobin 12.1 g/dL (14.0-18.0); Mean Corpuscular HGB Conc 33 g/dL (31-36); Mean Corpuscular Hemoglobin 28 pg (27-31); Mean Corpuscular Volume 85 fL (80-94); Mean Platelet Volume 9.3 fL (7.4-10.4); Platelet Count 145 10^3/uL (150-450); Red Blood Count 4.31 10^6 /uL (4.18-5.48); Red Cell Distribution Width 14 % (10-15); White Blood Count 8.6 10^3/uL (3.5-10.8)
[2022-03-23 02:11] LABS: Calcium 7.6 mg/dL (8.6-10.3); Magnesium 1.9 mg/dL (1.9-2.7); Phosphorus 3.4 mg/dL (2.5-5.0); Potassium 3.9 mmol/L (3.5-5.0); eGFR CKD-EPI 92.2 (>60)
[2022-03-23] MEDS ORDERED: Potassium Chlor 20 meq TAB.ER PO ONE (02:28)
[2022-03-23] MEDS ORDERED: Magnesium Sulfate IV 1GM/100ML 1 GM/100 ML BAG IV ONE (02:28)
[2022-03-23 05:39] LABS: Albumin 2.7 g/dL (3.2-5.2); Albumin/Globulin Ratio 2.1 (1-3); Globulin 1.3 g/dL (2-4); Magnesium 1.7 mg/dL (1.9-2.7); Potassium 3.4 mmol/L (3.5-5.0); Total Bilirubin 0.5 mg/dL (0.2-1.0); eGFR CKD-EPI 98.9 (>60)
[2022-03-23] MEDS ORDERED: KCL 20 MEQ/100 ML IVPREMIX 20 MEQ/100 ML BAG IV ONE (05:41)
[2022-03-23] MEDS ORDERED: Magnesium Sulfate 2 gm BAG 2 GM/50 ML BAG IVPB ONE (05:41)
[2022-03-23 06:49] LABS: Albumin 3.5 g/dL (3.2-5.2); Albumin/Globulin Ratio 2.3 (1-3); Globulin 1.5 g/dL (2-4); Magnesium 2.3 mg/dL (1.9-2.7); Potassium 4.4 mmol/L (3.5-5.0); Total Bilirubin 0.6 mg/dL (0.2-1.0); eGFR CKD-EPI 90.5 (>60)
[2022-03-23] MEDS: CMCS:OMEGA-3 FATTY ACID 1000 mg(NF) PO SCH ×2 (09:00→20:41)
[2022-03-23] MEDS ORDERED: Amiodarone IV 150 mg/3 ml VIAL IV PUSH ONE (10:08)
[2022-03-23] MEDS ORDERED: .Amiodarone 24HR ONLY IV Protocol Order Note IV ONE (10:10)
[2022-03-23] MEDS ORDERED: Amiodarone 150 mg IVPREMIX 150 MG/100 ML BAG IV ONE (10:10)
[2022-03-23] MEDS: Enoxaparin 100 MG/ML SYR SUBCUT SCH ×2 (10:17→20:41)
[2022-03-23] MEDS ORDERED: Amiodarone 360 MG IVPREMIX 360 MG/200 ML BAG IV SCH (10:25)
[2022-03-23] MEDS ORDERED: Flumazenil 0.5 mg/5 ml 0.1 MG/ML 5 ml VIAL ONE (14:58)
[2022-03-23] MEDS ORDERED: fentaNYL 100 mcg/2 ml 50 MCG/ML VIAL ONE (14:58)
[2022-03-23] MEDS ORDERED: Naloxone 0.4 mg VIAL 0.4 mg/ml 1 ml VIAL ONE (14:58)
[2022-03-23] MEDS ORDERED: Midazolam 5 mg/5 ml VIAL 1 mg/ml 5 ml VIAL (5 mg) ONE (14:58)
[2022-03-23] MEDS: Amiodarone 360 MG IVPREMIX 360 MG/200 ML BAG IV SCH (16:28)
[2022-03-24] MEDS: Amiodarone 360 MG IVPREMIX 360 MG/200 ML BAG IV SCH (04:13)
[2022-03-24 05:18] LABS: ABS Basophils 0.1 10^3/ul (0-0.2); ABS Eosinophils 0.1 10^3/ul (0-0.6); ABS Monocytes 0.7 10^3/ul (0-0.8); ABS Neutrophils 5.2 10^3/ul (1.5-7.7); Eosinophil % 1.3 %; Hematocrit 36 % (42-52); Hemoglobin 12.1 g/dL (14.0-18.0); Lymphocyte % 24.3 %; Mean Corpuscular HGB Conc 34 g/dL (31-36); Mean Corpuscular Hemoglobin 29 pg (27-31); Mean Corpuscular Volume 85 fL (80-94); Platelet Count 142 10^3/uL (150-450); Red Blood Count 4.21 10^6 /uL (4.18-5.48); Red Cell Distribution Width 14 % (10-15); White Blood Count 8.1 10^3/uL (3.5-10.8)
[2022-03-24 05:54] LABS: Calcium 7.9 mg/dL (8.6-10.3); Phosphorus 4.7 mg/dL (2.5-5.0); Potassium 4.1 mmol/L (3.5-5.0); eGFR CKD-EPI 74.8 (>60)
[2022-03-24] MEDS: CMCS:OMEGA-3 FATTY ACID 1000 mg(NF) PO SCH (08:41)
[2022-03-24] MEDS: Enoxaparin 100 MG/ML SYR SUBCUT SCH (08:42)
[2022-03-24] MEDS ORDERED: Amiodarone 400 mg TAB PO SCH (10:00)
[2022-03-24 11:21] VITALS: BP 123/68
== END 2022-03-24 13:30 | disposition home or self-care (01) | DRG 229 ==
LOC: ED 10:35 → EDHOLD 12:46 → ICU 15:34
PROVIDERS: ADMIT Internal Medicine Critical Care Medicine; ATTEND Internal Medicine Critical Care Medicine
PROC: CARDVER (ICD-10-PCS; 2022-03-23 13:05)